=== PATIENT | male | born 1955 | race Hispanic/Latino ===

== ENCOUNTER → 2024-03-28 | Outpatient (CLI) | payer OTHER | END | disposition home or self-care (01) | LOC: RAH 13:30 | PROVIDERS: ATTEND Internal Medicine | DX: R41.3 Other amnesia (principal); R09.89 Other specified symptoms and signs involving the circulatory and respiratory systems; I73.9 Peripheral vascular disease, unspecified; I10 Essential (primary) hypertension | CPT/HCPCS: 70450 ==